=== PATIENT | female | born 1955 | race Caucasian/White ===

== ENCOUNTER 2021-09-30 18:13 | Emergency (ER) | payer MEDICARE, MEDICAID, SELFPAY ==
[2021-09-30 18:18] VITALS: BP 160/112; PULSE 75; RESP 20; TEMP 36.8; O2SAT 99; BMI 29.0
--- NOTE | 2021-09-30 18:38 | ED.GENADULT ---
HPI - General Adult General Chief complaint: Skin/Abscess/Foreign Body Stated complaint: reaction on lips/cold sores Time Seen by Provider: 09/30/21 18:38 Source: patient Mode of arrival: ambulatory Limitations: no limitations History of Present Illness HPI narrative: 65-year-old female with a past medical history of HSV-1, presents to the emergency department with active sores around her lips x 3 days. Patient states that her symptoms are limited to her lips/face only. She denies any sores inside mouth or throat. She denies fever, chills, headache, vision changes, chest pain, SOB, nausea, vomiting, diarrhea, abdominal pain, dysuria, hematuria, or genital sores. Patient states that she used to have a PCP but does not currently have one. Patient states that she used to use cream and oral medications that helped but she has been out of them for a long time. Onset (ago): day(s) Location: face Radiation: non-radiation Severity: mild Severity scale (1-10): 2 Quality: burning Pain Consistency: constant Relieving factors: none Exacerbating factors: none Associated symptoms: denies other symptoms Treatments prior to arrival: none Related Data Previous Rx's Medication Instructions Recorded acyclovir 5 % topical ointment 1 appl topical 6XD 7 days #5 grams 09/30/21 (Zovirax) acyclovir 800 mg tablet 400 mg PO TID 7 days #11 tabs 09/30/21 Allergies Allergy/AdvReac Type Severity Reaction Status Date / Time acetaminophen [From PERCOCET] Allergy Unknown UNKNOWN Unverified 11/05/19 15:58 oxycodone [From PERCOCET] Allergy Unknown UNKNOWN Unverified 11/05/19 15:58 Review of Systems Constitutional: Constitutional: Reports as per HPI, Denies chills, Denies fever(s), Denies headache(s) and Denies malaise Eyes: Eyes: Reports as per HPI and Denies change in vision ENT: Denies headache(s) Cardiovascular: Cardiovascular: Denies chest pain and Denies dyspnea Respiratory: Respiratory: Reports as per HPI and Denies dyspnea Gastrointestinal: Gastrointestinal: Reports as per HPI, Denies abdominal pain, Denies diarrhea, Denies nausea and Denies vomiting Genitourinary: Genitourinary: Reports no additional female genitourinary complaints, Denies hematuria, Denies genital lesions and Denies dysuria Musculoskeletal: Musculoskeletal: Reports no additional musculoskeletal complaints, Denies numbness and Denies tingling Integumentary/Breasts: Skin/Breast: Reports lesions (around the lips) Neurologic: Denies headache(s), Denies numbness and Denies tingling Psychiatric: Psychiatric: Reports no additional psychiatric complaints Endocrine: Endocrine: Reports no additional endocrine complaints Hematologic/Lymphatic: Hematologic/Lymphatic: Reports no additional hematologic/lymphatic complaints Allergic/Immunologic: Allergic/Immunologic: Reports no additional allergic/immunologic complaints [facility] Past Medical History Attestation statement: The following information was validated with the patient. Source: old records reviewed Social History Social History Advance Directives: No Advance Directives Information Provided: No Physical Exam ED Vital Signs: Vital Signs - 24 hr 09/30/21 18:18 Temperature 98.3 F Pulse Rate 75 Respiratory Rate 20 Blood Pressure 160/112 H Pulse Oximetry 99 Oxygen Delivery Method Room Air BMI result Body Mass Index 29.0 Const General: cooperative, no acute distress, alert and awake Nutritional Appearance: well nourished Orientation/consciousness: patient oriented x3 Limitations: no limitations HENMT Other: Multiple herpetic lesions on lips/face, in various stages of healing. No evidence of discharge, fluctuance, streaking, induration, or swelling. Head: Yes atraumatic Ears: hearing grossly normal bilaterally and external ears normal General nose exam: Normal external nose present, no nasal discharge noted and no epistaxis Face and sinus: Yes normal facial exam, No abrasion and No laceration Mouth: Normal oral and palatal mucosa present, oropharynx normal, moist mucous membranes, no drooling and no muffled voice Throat: Yes posterior oropharynx normal and Yes uvula midline Eyes General: appearance normal, both eyes and all related structures Periorbital: periorbital findings normal Eyelids: Yes eyelids normal Conjunctivae: conjunctivae normal Pupils: Equal, round and reactive pupils present EOM: EOMs intact bilaterally Neck Neck: Yes normal visual inspection, Yes full ROM and Yes no lymphadenopathy Chest Chest palpation & inspection: normal inspection of the chest Resp Effort & Inspection: normal respiratory effort and able to speak in complete sentences Auscultation: clear to auscultation bilaterally Cardio Rate: regular rate Rhythm: regular rhythm GI Inspection: Yes normal to inspection Neuro General: patient oriented x3 and moves all extremities Cranial nerves: Yes Equal, round and reactive pupils present Cognition (Neuro): normal cognition Motor exam (neuro): 5/5 motor strength present throughout Sensory Exam: Normal double simultaneous stimulation for sensation Coordination: [id number] test normal Extrem General: Yes normal to inspection, Yes full ROM and Yes capillary refill normal Psych Appearance: grossly normal Mental Status: mental status grossly normal Affect: normal affect Attitude: cooperative Thought process: Normal thought process present Thought content: Normal thought content present Insight: Good insight present (Psych) Medical Decision Making MDM Narrative Medical decision making narrative: Patient is a 65 year old female presenting to the emergency department today with a HSV flare. Patient's physical exam showed multiple herpetic lesions surrounding and on her lips. I explained my physical exam findings to the patient. I answered all questions asked by the patient. I stressed the importance of the patient taking her medication as prescribed. I stressed the importance of the patient following up with her primary care provider. I stressed the importance of the patient returning to the emergency department immediately if her symptoms were to worsen or if she were to develop any dizziness, shortness of breath, difficulty breathing, chest pain, blurry vision, loss of vision, nausea, vomiting, abdominal pain, fever, chills, back pain, or any other complaints. Patient verbalized agreement and understanding with this treatment plan and discharge. Differential Diagnosis Differential Diagnosis: HSV flare Medical Records Medical records reviewed: Yes I reviewed the patient's medical records. Discharge Plan Discharge Clinical Impression: HSV-1 (herpes simplex virus 1) infection Patient Disposition: Home, Self-Care Instructions: Oral Herpes Simplex Virus Infections (ED) Additional Instructions: Follow up with your primary care provider. Return to the emergency department immediately if your symptoms worsen or if you develop any dizziness, shortness of breath, difficulty breathing, chest pain, blurry vision, loss of vision, nausea, vomiting, abdominal pain, fever, chills, back pain, or any other complaints. Prescriptions: New acyclovir [Zovirax] 5 % ointment 1 appl topical 6XD 7 Days Qty: 5 0RF acyclovir 800 mg tablet 400 mg PO TID 7 Days Qty: 11 0RF [place] [facility] (Call to establish and follow up with a primary care provider. If you already have a primary care provider, please follow up with them. ) [facility] [place] [facility] [place] (Call to establish and follow up with a primary care provider. If you already have a primary care provider, please follow up with them. ) [facility] [place] [facility] [place] (Call to establish and follow up with a primary care provider. If you already have a primary care provider, please follow up with them. ) Interventions: ED Discharge Assessment Last Done: 09/30/21 19:18 Discharge Date/Time: 09/30/21 19:18 Print Language: Salvadorean
== END 2021-09-30 19:18 | disposition home or self-care (01) ==
PROVIDERS: Emergency Provider Emergency Medicine Emergency Medical Services
DX: B00.1 Herpesviral vesicular dermatitis (principal)
CPT/HCPCS: 99282; 99283

== ENCOUNTER 2024-11-23 12:29 | Inpatient (IN) | payer MEDICARE, MEDICAID, SELFPAY ==
[2024-11-23] VITALS (7 sets, daily range): BP systolic 84–133; BP diastolic 52–86; PULSE 82–119; RESP 14–20; TEMP 36.4–37.1; O2SAT 94–98; BMI 25.8
--- NOTE | ~2024-11-23 | FL_ITS ---
EXAMINATION: FL SMALL BOWEL SERIES CLINICAL INFORMATION: ffup for partial small bowel osbtruction COMPARISON: Previous CT from yesterday TECHNIQUE: Following a mobile game engineer image of the abdomen, contrast was administered through a nasogastric tube, and interval abdominal radiographs were performed to assess for contrast progression through the small bowel. Following contrast transit through the small bowel and into the colon, the patient was placed on the fluoroscopy table, and multiple spot images were obtained. FINDINGS: Machinery Cleaner image of the abdomen demonstrates nasogastric tube coiled in the proximal stomach. There are dilated loops of small bowel. Small bowel appears less dilated than on yesterday's CT scan. There is normal transit time of contrast material through the small bowel, with contrast present in the colon by 25 minutes. Small bowel loops are of normal caliber throughout the abdomen and pelvis. The jejunal and ileal fold patterns are normal, without evidence of abnormal thickening. No fixed regions of luminal narrowing are seen to suggest stricturing. The terminal ileum demonstrates a normal appearance. There is passage of oral contrast through the colon into the rectum. FLUOROSCOPY TIME: 4 seconds DOSE AREA PRODUCT: 386 uGy-m2 (microgray-meter squared) FL/FL small bowel follow through IMPRESSION: Normal small bowel series. No evidence of obstruction. Electronically signed by: Ryanne Luu MD 11/24/2024 01:59 PM EDT
--- NOTE | ~2024-11-23 | XR_ITS ---
CLINICAL HISTORY: ng tube placement 1 view chest x-ray Comparison: None provided Findings: No consolidation or effusion. Normal size heart. No acute fracture. Well-positioned NG tube. IMPRESSION: Well-positioned NG tube. This document has been electronically signed by: Doroteo Terrazas MD on 11/24/2024 05:07:17
--- NOTE | ~2024-11-23 | CT_ITS ---
EXAMINATION: CT ANGIOGRAM chest, ABDOMEN AND PELVIS CLINICAL INFORMATION: Chest and abdominal pain. Rule out dissection. COMPARISON: None available. TECHNIQUE: Multiple axial images were obtained through the abdomen and pelvis following the administration of 80 mL of Omnipaque 350 intravenous contrast. Images were reviewed on a dedicated 3-D workstation. This CT examination was performed using dose optimization techniques as appropriate, variously including the following: *Automated exposure control *Adjustment of mA and/or kV according to patient size (this includes techniques or standardized protocols for targeted exams where dose is matched to indication/reason for exam; i.e. extremities or head) *Use of iterative reconstruction technique Patient dose 5 9 6 mg/cm FINDINGS: Vascular: The thoracic aorta is normal in caliber. No aneurysm or dissection. Great vessel origins are patent. Normal caliber pulmonary arteries. No pulmonary embolism seen. Normal caliber abdominal aorta. No aneurysm or dissection. Normal caliber common, internal and external iliac and common femoral arteries. Normal caliber femoral bifurcations. Common origin of the celiac axis and SMA. Patent BARBARA. Normal caliber bilateral renal arteries. Nonvascular: CHEST: The lungs are clear. Normal heart size. No pericardial effusion. No coronary artery calcification. There may be a small esophageal hernia. Normal-appearing thyroid gland. No enlarged lymph nodes. Abdomen and pelvis: Normal liver. Absent gallbladder. Intra and extrahepatic biliary duct dilatation. Common bile duct measures 1.5 cm and is dilated down to the head of the pancreas. No stone appreciated by CT. Normal pancreas. Normal spleen. Normal adrenal glands. 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 Otherwise normal kidneys. Dilated fluid-filled stomach and small bowel. Distal small bowel does not appear dilated with transition zone in the right lower quadrant suggestive of distal small bowel obstruction for example coronal image 48 and axial image 114 series 5. Diverticulosis of the colon. No evidence of diverticulitis. Normal-appearing appendix. Normal-appearing bladder, uterus and adnexa. No ascites or free air. Small mesenteric lymph nodes. No enlarged lymph nodes. Degenerative changes of the spine. L1 vertebral body hemangioma. CT/CT angio abdomen pelvis IMPRESSION: No evidence of dissection. Dilated fluid-filled small bowel suggestive of distal small bowel obstruction with caliber change in the right lower quadrant. Diverticulosis of the colon. No evidence of diverticulitis. Dilated intra and extrahepatic bile ducts, common bile duct measuring up to 1.5 cm. This may be normal postcholecystectomy. Correlate with liver function tests. This could be better evaluated with MRCP if clinically warranted. Fleischner guidelines were followed. Electronically signed by: Ryanne Luu MD 11/23/2024 03:01 PM EDT RP
--- NOTE | ~2024-11-23 | CT_ITS ---
EXAMINATION: CT ANGIOGRAM CHEST See report for combined CTA of the chest abdomen and pelvis. Electronically signed by: Ryanne Luu MD 11/23/2024 03:02 PM EDT
--- NOTE | ~2024-11-23 | XR_ITS ---
EXAMINATION: XR CHEST CLINICAL INFORMATION: free air evaluation COMPARISON: None available. TECHNIQUE: Frontal view of the chest was obtained. FINDINGS: The cardiac, hilar, and mediastinal contours are normal. The lungs are clear bilaterally. No pneumothorax or effusion. No focal osseous or soft tissue abnormality. There is no evidence of free intraperitoneal air. Degenerative changes in the bilateral shoulder joints and throughout the spine. XR/XR chest 1V IMPRESSION: No active pulmonary disease. No evidence of free intraperitoneal air. Electronically signed by: Pool Lindsey MD 11/23/2024 01:39 PM EDT RP
--- NOTE | 2024-11-23 13:04 | ECG_ITS ---
Test Reason : abd pain Blood Pressure : */* mmHG Vent. Rate : 105 BPM Atrial Rate : 105 BPM P-R Int : 164 ms QRS Dur : 66 ms QT Int : 344 ms P-R-T Axes : 58 -38 66 degrees QTcB Int : 454 ms Sinus tachycardia Possible Left atrial enlargement Left axis deviation Abnormal ECG When compared with ECG of 09-May-2016 16:14, Questionable change in QRS duration Referred By: John Rubin Electronically Signed By: KARSON CLARK MD
[2024-11-23] MEDS: Lactated Ringers 1,000 ML 999 ML IV ×2 (13:25→13:41)
[2024-11-23 13:28] LABS: MANUAL DIFF FLAG NO
[2024-11-23 13:32] LABS: Hematocrit 46.8 % (37.0-47.0); Hemoglobin 16.1 g/dl (12.0-16.0); Imm Gran Abs Auto 0.05 X10*3/uL (0.00-0.03); Imm Gran Pct Auto 0.4 % (0.0-0.4); Lymphocytes Absolute Auto 2.6 X10*3/uL (1.2-4.9); Mean Corpuscular HGB Conc 34.4 g/dl (31.0-35.0); Mean Corpuscular Hemoglobin 27.9 pg (27.0-33.0); Mean Corpuscular Volume 81.1 fL (80.0-98.0); NRBC Abs Auto 0.000 X10*3/uL (0.0-0.012); NRBC Pct Auto 0.0 /100WBC (0.0-0.2); Platelet Count 456 X10*3/uL (160-400); Red Blood Count 5.77 X10*6/uL (4.20-5.50); White Blood Count 11.9 X10*3/uL (4.8-10.8)
--- NOTE | 2024-11-23 13:32 | ED.GENADULT ---
[facility] - General Adult General Chief complaint: Abdominal Pain Stated complaint: stomach pain, bloating for 3 days Time Seen by Provider: 11/23/24 13:16 Source: patient Mode of arrival: ambulatory Limitations: no limitations History of Present Illness ED Provider: Dr. Pham [facility] narrative: 69-year-old female presented hospital today for evaluation of left upper quadrant pain. Patient appears to be in acute Distress. Patient's is actively vomiting. Appears to be bile. Patient is not to be hypotensive and tachycardic in triage brought back to room immediately. Patient stated that this pain started all of a sudden in the left upper quadrant. She has very nauseous. Last bowel movement was earlier yesterday. Related Data Previous Rx's ?Medication ?Instructions ?Recorded acyclovir 5 % topical ointment 1 appl topical 6XD 7 days #5 grams 09/30/21 (Zovirax) acyclovir 800 mg tablet 400 mg (1/2 x 800 mg) PO TID 7 09/30/21 days #11 tabs Allergies Allergy/AdvReac Type Severity Reaction Status Date / Time acetaminophen (From PERCOCET) Allergy Unknown UNKNOWN Verified 11/23/24 12:56 oxycodone (From PERCOCET) Allergy Unknown UNKNOWN Verified 11/23/24 12:56 Review of Systems Review of Systems: Pertinent review of systems as mentioned in [facility]. All other system otherwise negative. [facility] Past Medical History [facility] Narrative: Medical history as mentioned in [facility] Social History Social History Advance Directives: No Advance Directives Information Provided: Yes Physical Exam ED Exam Exam: General: Appears to be in acute distress appears to be in pain actively vomiting Head: Normacephalic, atraumatic ENT: oral mucosa moist, neck supple, no tracheal deviation Cardiovascular: Tachycardic rate, regular rhythm, no murmurs, rubbing, gallops Respiratory: CTAB, no wheeze, rales, rhonchi Gastrointestinal: Soft, left upper quadrant tenderness on palpation Extremities: No limb pain or swelling, no calf tenderness Neurological: Awake and alert, no facial droop noted Skin: Warm and dry Psychiatric: Appropriate mood and thoughts Vital Signs: Vital Signs - 24 hr 11/23/24 12:54 11/23/24 13:30 11/23/24 14:30 Temperature 97.6 F Pulse Rate 119 H 98 Respiratory Rate 20 16 Blood Pressure 84/52 L 104/86 133/85 Pulse Oximetry 94 98 Oxygen Delivery Method Room Air 11/23/24 16:00 Temperature Pulse Rate 91 Respiratory Rate 16 Blood Pressure 117/75 Pulse Oximetry 98 Oxygen Delivery Method Room Air BMI result Body Mass Index 25.8 Medications Administered Discontinued Medications Generic Name Dose Route Start Last Admin Trade Name Freq PRN Reason Stop Dose Admin Famotidine 20 mg 11/23/24 13:23 11/23/24 13:30 Famotidine/Pf 20 Mg/2 Ml Vial IVPUSH 11/23/24 13:24 20 mg ONCE ONE Administration Fentanyl 100 mcg 11/23/24 13:20 11/23/24 13:25 Fentanyl Citrate/Pf 100 Mcg/2 Ml Vial IVPUSH 11/23/24 13:21 100 mcg ONCE ONE Administration Protocol Hydromorphone HCl 0.5 mg 11/23/24 13:30 11/23/24 13:34 Hydromorphone Hcl 0.5 Mg/0.5 Ml Syringe IVPUSH 11/23/24 13:31 0.5 mg ONCE ONE Administration Protocol Hydromorphone HCl 0.5 mg 11/23/24 15:44 11/23/24 15:56 Hydromorphone Hcl 0.5 Mg/0.5 Ml Syringe IM 11/23/24 15:45 0.5 mg ONCE ONE Administration Protocol Lactated Ringer's 1,000 mls @ 999 mls/hr 11/23/24 13:30 11/23/24 14:43 Lr IV 11/23/24 14:30 Infused .Q1H1M LUIS Infusion Lactated Ringer's 1,000 mls @ 999 mls/hr 11/23/24 13:45 11/23/24 15:44 Lr IV 11/23/24 14:45 Infused .Q1H1M LUIS Infusion Iohexol 100 ml 11/23/24 14:22 11/23/24 14:23 Iohexol 350 Mg/Ml 100 Ml Infus..Btl IV 11/23/24 14:23 80 ml ONCE ONE Administration Ondansetron HCl 4 mg 11/23/24 13:20 11/23/24 13:25 Ondansetron Hcl 4 Mg/2 Ml Vial IVPUSH 11/23/24 13:21 4 mg ONCE ONE Administration Ondansetron HCl 4 mg 11/23/24 13:30 11/23/24 13:34 Ondansetron Hcl 4 Mg/2 Ml Vial IVPUSH 11/23/24 13:31 4 mg ONCE ONE Administration Promethazine HCl 12.5 mg 11/23/24 15:44 11/23/24 15:56 Promethazine Hcl 25 Mg/Ml Vial IM 11/23/24 15:45 12.5 mg ONCE ONE Administration Medical Decision Making Medical Decision Making [facility] Narrative: 69-year-old female presented hospital today for acute left upper quadrant pain. Patient does appear to be actively vomiting bilious emesis. Appears to be in acute pain. Patient is noted to be hypotensive 89/52 tachycardic in the 118. We will plan to give patient a dose of 100 mcg of IV fentanyl, IV Zofran be given to the patient as well as start patient on LR. Patient likely is hypovolemic from vomiting. She does have tenderness in the left upper quadrant. We will obtain a stat chest x-ray to evaluate for any signs of free air underneath the diaphragm. Abdominal lab work will be sent off for the patient at this time. Patient is still complaining of pain. Additional IV Dilaudid was given for pain control. Additional dose of IV Zofran given to the patient. We will plan to start patient on a L of IV fluid. CTA of the chest abdomen and pelvis will be obtained to rule out dissection. On reassessment patient appears to be better. No longer actively vomiting. Pain is controlled. Pending CTA of the chest abdomen and pelvis at this time. CTA of the chest abdomen pelvis negative for dissection. Patient does appear to be improved after medication. Patient does have finding of small bowel obstruction on CT imaging. Surgery was consulted recommend admission at this time. NG tube will be placed. Additional Compazine and IV Dilaudid given for pain and symptom control. Patient is agreement with this plan all questions were addressed. Differential Diagnosis Differential Diagnoses: The differential diagnosis associated with the presentation includes Aortic dissection, gastric perforation, gastritis, AAA, GERD Consult Healthcare Provider Management of the patient was discussed with: Head Of Housekeeping (Dr. Friedman (General surgery)) Lab Data [facility] Lab Attestation statement: I reviewed the patient's lab results. 11/23/24 13:23 11/23/24 13:23 Labs: Lab Results 10/06/25 Range/Units 13:23 WBC 11.9 H (4.8-10.8) X10*3/uL RBC 5.77 H (4.20-5.50) X10*6/uL Hgb 16.1 H (12.0-16.0) g/dl Hct 46.8 (37.0-47.0) % MCV 81.1 (80.0-98.0) fL MCH 27.9 (27.0-33.0) pg MCHC 34.4 (31.0-35.0) g/dl RDW 14.1 (11.0-16.0) % Plt Count 456 H (160-400) X10*3/uL MPV 10.2 (9.4-12.3) fL Immature Gran % (Auto) 0.4 (0.0-0.4) % Neut % (Auto) 68.2 (45-73) % Lymph % (Auto) 21.7 (20-40) % [place] % (Auto) 8.5 (2-11) % Eos % (Auto) 0.6 (0-4) % Baso % (Auto) 0.6 (0-2) % Lymph # (Auto) 2.6 (1.2-4.9) X10*3/uL [place] # (Auto) 1.0 (0.1-1.2) X10*3/uL Eos # (Auto) 0.1 (0.0-0.4) X10*3/uL Baso # (Auto) 0.1 (0.0-0.2) X10*3/uL Abs Immat Gran (auto) 0.05 H (0.00-0.03) X10*3/uL Absolute Neuts (auto) 8.1 (2.0-8.3) x10*3/uL Absolute Nucleated RBC 0.000 (0.0-0.012) X10*3/uL Nucleated RBC % (auto) 0.0 (0.0-0.2) /100WBC Sodium 137 (135-145) mmol/L Potassium 3.8 (3.3-5.1) mmol/L Chloride 101 (96-108) mmol/L Carbon Dioxide 21 L (22-29) mmol/L Anion Gap 19 (12-20) BUN 48 H (9-16) mg/dL Creatinine 1.33 (0.5-1.4) mg/dL Estim Creat Clear Calc 40.7 Estimated GFR 40 Random Glucose 119 H (60-115) mg/dL Calcium 10.0 (8.4-10.2) mg/dL Magnesium 1.9 (1.6-2.6) mg/dL Total Bilirubin 0.6 (0.0-1.0) mg/dL AST 39 H (5-31) U/L ALT 51 H (0-31) U/L Alkaline Phosphatase 98 (39-117) U/L Troponin I High Sens 2.9 (<3.5-17.0) ng/L Total Protein 8.4 H (6.5-8.0) g/dL Albumin 4.8 (3.5-5.0) g/dL Lipase 37 (8-78) U/L Independent Interpretation I performed an independent interpretation of an: CT Scan Radiology Impression Discussion of test interpretation with radiology: I have reviewed the radiologist's reading. Critical Care Time Critical Care Time Critical Care Time: Yes Total Critical Care Time: 48 Attestation: Time is exclusive of separately billable procedures. Time includes: direct patient care, patient reassessment, coordination of patient care, interpretation of data (laboratory data, pulse oximetry, arterial blood gases and chest xrays), review of patient's medical records, medical consultation and documentation of patient care. Procedures excluded from critical care time: central intravenous line placement and electrocardiography. Discharge Plan Discharge Clinical Impression: Small bowel obstruction, Dehydration, severe Patient Disposition: Admitted As Inpatient Print Language: Urdu
[2024-11-23 13:50] LABS: Troponin-I High Sensitivity 2.9 ng/L (<3.5-17.0)
--- NOTE | 2024-11-23 13:55 | PC.NURSE ---
On arrival pt actively vomiting and moaning. Pt endorses LUQ stabbing pain. States abdomen feels liek it is going to explode . Tearful
[2024-11-23 13:57] LABS: Alanine Aminotransferase 51 U/L (0-31); Albumin Level 4.8 g/dL (3.5-5.0); Alkaline Phosphatase 98 U/L (39-117); Anion Gap 19 (12-20); Aspartate Amino Transferase 39 U/L (5-31); Blood Urea Nitrogen 48 mg/dL (9-16); Calcium 10.0 mg/dL (8.4-10.2); Carbon Dioxide 21 mmol/L (22-29); Chloride 101 mmol/L (96-108); Creatinine Clr Calc Pharmacy 40.7; Estimated Glomerular Filt Rate 40; Lipase 37 U/L (8-78); Magnesium 1.9 mg/dL (1.6-2.6); Potassium 3.8 mmol/L (3.3-5.1); Sodium 137 mmol/L (135-145); Total Protein 8.4 g/dL (6.5-8.0)
[2024-11-23] MEDS: iohexoL 350 MG/ML 100 ML INFUS..BTL IV (14:23)
--- NOTE | 2024-11-23 14:44 | PC.NURSE ---
Pt with significant improvement after dilaudid and zofran. VS improved with IVF. Results pending.
--- OUTSIDE RECORDS SUMMARY | 2024-11-23 16:22 | XMS_ITS | Clinical Summary ---
Author Organization [facility] ity Address [address] [place] [address] Care Team Providers Care Hygiene Coordinator Name Role Phone Unavailable Primary Care Provider Unavailabl e Social History Tobacco Use Types Packs/Day Years Used Date Smoking Tobacco: Never Assessed Comments Unknown Sex and Gender Information Value Date Recorded Sex Assigned at Not on file Legal Sex Female 9:06 AM EST Gender Identity Not on file Sexual Orientation Not on file Plan of Treatment Health Maintenance Due Date Last Done Comments Breast Cancer Screening 1955 DTaP,Tdap,and Td Vaccines (1 - Tdap) 10/15/1974 Pneumococcal Vaccine: 50+ Ye ars (1 of 1 - PCV) 10/15/2005 Zoster Vaccines (1 of 2) 10/15/2005 Depression Screening 02/19/2024 COVID-19 Vaccine (1 - 2023-2 5 season) 2024 Influenza Vaccine (#1) 2024 RSV Immunization Adult Patie nts (1 - 1-dose 75+ series) 10/15/2030 HIB Vaccines Aged Out No longer eligi ble based on patient's age to complete this topic HPV Vaccines Aged Out No longer eligi ble based on patient's age to complete this topic Hepatitis A Vaccines Aged Out No long er eligible based on patient's age to complete this topic Hepatitis B Vaccines Aged Out No long er eligible based on patient's age to complete this topic IPV Vaccines Aged Out No longer eligi ble based on patient's age to complete this topic MMR Vaccines Aged Out No longer eligi ble based on patient's age to complete this topic Meningococcal ACWY Vaccine Aged Out N o longer eligible based on patient's age to complete this topic Meningococcal B Vaccine Aged Out No l onger eligible based on patient's age to complete this topic RSV Immunization Patients Un olamide 20 months Aged Out No longer eligible b ased on patient's age to complete this topic Varicella Vaccines Aged Out No longer eligible based on patient's age to complete this topic
--- NOTE | 2024-11-23 16:56 | P.HPGS_ITS ---
History of Present Illness History of Present Illness Date of Service: 11/25/24 Chief complaint: Partial small bowel obstruction Narrative: Yadira Ulloa is a 69 year old female with a history of appendectomy, laparoscopic cholecystectomy as well as a Darnell fundoplication, here because of vomiting and abdominal pain. She says that she has been having this for several days now. She says that she had been throwing up at home for many days and has a poor oral intake. She describes having severe abdominal pain mostly in the upper abdomen today so she came to the ER Currently she says her symptoms have improved. She says she last vomited around 3 hours ago She says she has passed a little bit of flatus and BMs this morning. She says she says she no longer sees a primary care physician as she is in the process of switching. She denies diabetes, coronary artery disease, smoking history or alcohol abuse. Review of Systems Constitutional: Constitutional: Denies chills and Denies fever(s) Cardiovascular: Cardiovascular: Denies chest pain, Denies dyspnea and Denies dyspnea on exertion Respiratory: Respiratory: Denies cough, Denies dyspnea and Denies dyspnea on exertion Gastrointestinal: Gastrointestinal: Denies hematochezia and Denies change in bowel habits Genitourinary: Genitourinary: Denies hematuria Musculoskeletal: Musculoskeletal: Denies back pain and Denies limited range of motion Neurologic: Denies focal weakness and Denies convulsions Psychiatric: Psychiatric: Denies depression and Denies mood swings PMFSH Past Medical History Medical History Partial small bowel obstruction Social History Social History Household Members: Friend(s) Housing: Apartment Do you presently have visiting nurse or other home services: No Patient Tobacco Use Status: Never used Tobacco service: No Meds Allergies Allergy/AdvReac Type Severity Reaction Status Date / Time acetaminophen (From PERCOCET) Allergy Unknown UNKNOWN Verified 11/23/24 12:56 oxycodone (From PERCOCET) Allergy Unknown UNKNOWN Verified 11/23/24 12:56 Home Medications ?Medication ?Instructions ?Recorded ?Confirmed ?Last Taken ?Type omeprazole 20 mg capsule,delayed 20 mg PO BID@0630,163 0 11/23/24 11/23/24 11/22/24 History release Physical Exam 2 Vital Signs: Vital Signs: Last Vital Signs Temp 97.6 F 11/23/24 12:54 Pulse 91 11/23/24 16:00 Resp 16 11/23/24 16:00 BP 117/75 11/23/24 16:00 Pulse Ox 98 11/23/24 16:00 O2 Del Method Room Air 11/23/24 16:00 BMI result Body Mass Index 25.8 Const: General: comfortable and no acute distress Orientation/consciousness: patient oriented x3 Neck: Neck: Yes no lymphadenopathy Resp: Auscultation: clear to auscultation bilaterally Cardio: Rhythm: regular rhythm GI: Palpation (GI): Soft to palpation, Tenderness to palpation present (GI) (Some mild diffuse tenderness mostly in the upper abdomen) and no guarding Neuro: General: patient oriented x3 Results Results Labs: Short CBC 11/23/24 Range/Units 13:23 WBC 11.9 H (4.8-10.8) X10*3/uL Hgb 16.1 H (12.0-16.0) g/dl Hct 46.8 (37.0-47.0) % Plt Count 456 H (160-400) X10*3/uL BMP 11/23/24 13:23 Sodium 137 Potassium 3.8 Chloride 101 Carbon Dioxide 21 L BUN 48 H Creatinine 1.33 Calcium 10.0 Liver Function 11/23/24 Range/Units 13:23 Total Bilirubin 0.6 (0.0-1.0) mg/dL AST 39 H (5-31) U/L ALT 51 H (0-31) U/L Alkaline Phosphatase 98 (39-117) U/L Albumin 4.8 (3.5-5.0) g/dL Abdomen CT scan report/results: report reviewed and image reviewed CT scan - chest: report reviewed and image reviewed CT scan - pelvis: report reviewed and image reviewed Additional studies: CT/CT angio abdomen pelvis IMPRESSION: No evidence of dissection. Dilated fluid-filled small bowel suggestive of distal small bowel obstruction with caliber change in the right lower quadrant. Diverticulosis of the colon. No evidence of diverticulitis. Dilated intra and extrahepatic bile ducts, common bile duct measuring up to 1.5 cm. This may be normal postcholecystectomy. Correlate with liver function tests. This could be better evaluated with MRCP if clinically warranted. Fleischner guidelines were followed. Electronically signed by: Ryanne Luu MD 11/23/2024 03:01 PM EDT RP Assessment and Plan (1) Partial small bowel obstruction: Status: Acute 69 year female with the abdominal pain and vomiting. I have reviewed her CAT scan he is note of dilated small bowel loops with what appears to be tapering and collapse distally in the pelvis. This is consistent with partial small- bowel obstruction likely from adhesions. She has had gallbladder surgery, fundoplication as well as appendectomy in the past. She does have good amounts of air in the colon Her abdomen is soft and benign. I explained to her that we will need to put an NG-tube in and she will be on IV fluids I may order for a small bowel series with Gastrografin tomorrow. She understands the plan well. We will repeat her labs in the morning as well. Quality Stroke Does the patient have a stroke diagnosis?: No VTE Prior VTE?: No VTE Risk Level:: Medical - moderate - high VTE Device Contraindication: N/A - Device Ordered VTE Drug Contraindication: N/A - Med Ordered Procedures Date of Service Date of Service: 11/25/24
--- NOTE | 2024-11-23 16:59 | PC.NURSE ---
14 Maced[place] Mccone NG tube inserted via left nostril. Placement verified.. Tube attached to low intermittent suction (LIS) as ordered. Tube secured to nose with exit point at 54 cm. Tolerated procedure without complication, states decreased pressure/pain- thick yellow brown drainage noted. plan for admission for SBO.
[2024-11-23] MEDS: Lactated Ringers 1,000 ML 100 ML IVCONT (17:36)
--- NOTE | 2024-11-23 18:25 | HO.NURTONUR ---
Pt came to ED for 3 days of n/v and LUQ abd pain. Hx of appendectomy, lap primitivo, antonia fundoplication. CT showed partial SBO likely from adhesions from previous abd surgeries. NGT placed to LIS. Approx 200 yellow/bile output. Pain and nausea decreased s/p NGT placement and dilaudid. Pt has 20g LFA, 20g RAC. Initally tachycardic and hypotensive. Improved with IVFs. Plan for rescan tomorrow.
--- NOTE | 2024-11-23 18:58 | PHA.MEDREC ---
Addendum entered by Fredrick Young, PharmBreann 11/23/24 21:35: MED REC CHECKED BY [facility] Original Note: Pharmacy Consult ? Medication Reconciliation Pharmacy has completed the medication reconciliation. Patient states she is only taking Omeprazole 20 mg.
[2024-11-24] VITALS (8 sets, daily range): BP systolic 92–121; BP diastolic 58–75; PULSE 71–88; RESP 13–20; TEMP 36.6–36.8; O2SAT 94–97; BMI 27.4
[2024-11-24] MEDS: 0.9 % Sodium Chloride Flush 3 ML SYRINGE IVFLUSH (00:17)
[2024-11-24] MEDS: Lactated Ringers 1,000 ML 100 ML IVCONT ×3 (03:46→23:36)
[2024-11-24 04:46] LABS: MANUAL DIFF FLAG NO
[2024-11-24 04:49] LABS: Hematocrit 40.1 % (37.0-47.0); Hemoglobin 13.1 g/dl (12.0-16.0); Imm Gran Abs Auto 0.03 X10*3/uL (0.00-0.03); Imm Gran Pct Auto 0.3 % (0.0-0.4); Lymphocytes Absolute Auto 2.0 X10*3/uL (1.2-4.9); Mean Corpuscular HGB Conc 32.7 g/dl (31.0-35.0); Mean Corpuscular Hemoglobin 27.6 pg (27.0-33.0); Mean Corpuscular Volume 84.4 fL (80.0-98.0); NRBC Abs Auto 0.000 X10*3/uL (0.0-0.012); NRBC Pct Auto 0.0 /100WBC (0.0-0.2); Platelet Count 331 X10*3/uL (160-400); Red Blood Count 4.75 X10*6/uL (4.20-5.50); White Blood Count 9.6 X10*3/uL (4.8-10.8)
[2024-11-24 05:07] LABS: Appearance Urine Clear; Glucose Urine UA Negative (Negative); PH 6.0 (5.0-9.0); Specific Gravity - Urine >= 1.030 (1.005-1.025); UMIC TRIGGER UA YES
[2024-11-24 05:11] LABS: Anion Gap 12 (12-20); Blood Urea Nitrogen 32 mg/dL (9-16); Calcium 8.7 mg/dL (8.4-10.2); Carbon Dioxide 28 mmol/L (22-29); Chloride 104 mmol/L (96-108); Creatinine Clr Calc Pharmacy 63.7; Estimated Glomerular Filt Rate > 60; Potassium 4.0 mmol/L (3.3-5.1); Sodium 140 mmol/L (135-145)
--- NOTE | 2024-11-24 07:41 | PM.PNGS ---
Subjective Subjective Date of Service: 11/24/24 <Lana Krishnan PA-C - Last Filed: 11/24/24 08:31> 11/24/24 <Riki Friedman MD - Last Filed: 11/24/24 09:59> Interval history: Initially felt better after NGT inserted, pain returned this morning but overall less severe. Some nausea but no further vomiting. She is passing a small amount of flatus. <Lana Krishnan PA-C - Last Filed: 11/24/24 08:31> Physical Exam Vital Signs: Vital Signs: Last Vital Signs Temp 98.8 F 11/23/24 23:43 Pulse 75 11/24/24 04:49 Resp 19 11/24/24 04:49 BP 121/75 11/24/24 04:49 Pulse Ox 97 11/24/24 04:49 O2 Del Method Nasal Cannula 11/24/24 04:49 O2 Flow Rate 2 11/24/24 02:17 BMI result Body Mass Index 25.8 <Lana Krishnan PA-C - Last Filed: 11/24/24 08:31> Const: General: comfortable and no acute distress <Lana Krishnan PA-C - Last Filed: 11/24/24 08:31> Resp: Effort & Inspection: normal respiratory effort <OSMAR Albarran Last Filed: 11/24/24 08:31> GI: Inspection: Yes distended (mild ) <Lana Krishnan PA-C - Last Filed: 11/24/24 08:31> Palpation (GI): Soft to palpation, Tenderness to palpation present (GI) (mild LUQ and LLQ) and no guarding <Lana Krishnan PA-C - Last Filed: 11/24/24 08:31> Skin: General skin exam: no rashes or lesions noted <OSMAR Albarran Last Filed: 11/24/24 08:31> Objective Data Active Medications Acetaminophen (Acetaminophen 325 Mg Tablet) 650 mg PO Q6H PRN PRN Reason: Pain, Mild 1-3,fever,headache Heparin Sodium (Porcine) (Heparin Sodium,Porcine 5,000 Unit/Ml Vial) 5,000 unit SUBCUT Q12H LUIS Lactated Ringer's (Lr) 1,000 mls @ 100 mls/hr IVCONT .[facility]H [facility] Last Admin: 11/24/24 03:46 Dose: 100 mls/hr Documented By: CHANCE Morphine Sulfate (Morphine Sulfate 4 Mg/Ml Cartridge) 3 mg IVPUSH Q3H PRN; Protocol PRN Reason: Pain, Severe (Pain Scale 7-10) Last Admin: 11/24/24 00:17 Dose: 3 mg Documented By: CHANCE Ondansetron HCl (Ondansetron Hcl 4 Mg/2 Ml Vial) 4 mg IVPUSH Q6H PRN PRN Reason: nausea Last Admin: 11/23/24 19:27 Dose: 4 mg Documented By: CHANCE Sodium Chloride (0.9 % Sodium Chloride Flush 3 Ml Syringe) 3 ml IVFLUSH QSHIFT [facility] Last Admin: 11/24/24 00:17 Dose: 3 ml Documented By: CHANCE <Lana Krishnan PA-C - Last Filed: 11/24/24 08:31> Labs CBC & Chem 7: 11/24/24 04:09 11/24/24 04:09 <Lana Krishnan PA-C - Last Filed: 11/24/24 08:31> Labs: Laboratory Results - last 24 hr 11/23/24 11/24/24 11/24/24 13:23 04:09 05:00 MCV 81.1 84.4 MCH 27.9 27.6 MCHC 34.4 32.7 RDW 14.1 14.4 Plt Count 456 H 331 D MPV 10.2 10.2 Immature Gran % (Auto) 0.4 0.3 Neut % (Auto) 68.2 64.8 Lymph % (Auto) 21.7 20.4 [place] % (Auto) 8.5 11.0 Eos % (Auto) 0.6 2.6 Baso % (Auto) 0.6 0.9 Lymph # (Auto) 2.6 2.0 [place] # (Auto) 1.0 1.1 Eos # (Auto) 0.1 0.3 Baso # (Auto) 0.1 0.1 Abs Immat Gran (auto) 0.05 H 0.03 Absolute Neuts (auto) 8.1 6.2 Absolute Nucleated RBC 0.000 0.000 Nucleated RBC % (auto) 0.0 0.0 Anion Gap 19 12 Estim Creat Clear Calc 40.7 63.7 Estimated GFR 40 > 60 Random Glucose 119 H 95 Calcium 10.0 8.7 D Magnesium 1.9 Total Bilirubin 0.6 AST 39 H ALT 51 H Alkaline Phosphatase 98 Troponin I High Sens 2.9 Total Protein 8.4 H Albumin 4.8 Lipase 37 Urine Color Yellow Urine Appearance Clear Urine pH 6.0 Ur Specific [place] >= 1.030 H Urine Protein 30 (1+) H Urine Glucose (UA) Negative Urine Ketones 15 Urine Blood Negative Urine Nitrite Negative Ur Leukocyte Esterase Negative Urine RBC 0-2 Urine WBC 0-5 Ur Squamous Epith Cells 3-5 Urine Bacteria Trace Hyaline Casts 3-5 <Lana Krishnan PA-C - Last Filed: 11/24/24 08:31> Procedures Date of Service Date of Service: 11/24/24 <Lana Krishnan PA-C - Last Filed: 11/24/24 08:31> 11/24/24 <Riki Friedman MD - Last Filed: 11/24/24 09:59> Progress Note: A&P Assessment and plan (1) Small bowel obstruction: Status: Acute <Lana Krishnan PA-C - Last Filed: 11/24/24 08:31> Assessment and Plan: Some abdominal pain although better Little bit of nausea but no vomiting NG-tube in place Abdomen is soft and benign Looks well overall For small bowel follow-through with Gastrografin She is passing flatus Seen and examined independently <Riki Friedman MD - Last Filed: 11/24/24 09:59> Assessment and Plan: She does have some evidence of GI function but continued pain and nausea. Will therefore obtain SBFT today to hopefully open her up further. Cont NGT decompression, IVF, pain control and antiemetics as needed. Patient comfortable with plan. Encouraged OOB/ambulation to promote GI function. <Lana Krishnan PA-C - Last Filed: 11/24/24 08:31> Time Spent With Patient Time: Total time managing care of this patient today ____ minutes. <Lana Krishnan PA-C - Last Filed: 11/24/24 08:31> Quality Stroke Does the patient have a stroke diagnosis?: No <Lana Krishnan PA-C - Last Filed: 11/24/24 08:31> VTE Prior VTE?: No <Lana Krishnan PA-C - Last Filed: 11/24/24 08:31> VTE Risk Level:: Medical - moderate - high <Lana Krishnan PA-C - Last Filed: 11/24/24 08:31> VTE Device Contraindication: N/A - Device Ordered <Lana Krishnan PA-C - Last Filed: 11/24/24 08:31> VTE Drug Contraindication: N/A - Med Ordered <Lana Krishnan PA-C - Last Filed: 11/24/24 08:31>
--- NOTE | 2024-11-24 07:58 | PC.NURSE ---
Pt A&O X4 VSS NGT to LWS draining light brown-clr drainage. Pt c/o abd pain- med with Morphine just now. NAD otherwise.
--- NOTE | 2024-11-24 10:08 | PM.EVENT ---
Event Note Date of Service: 11/24/24 Event Note: SBFT ordered. 240cc gastrograffin injected at 10:00. Patient tolerated well. Radiology at bedside. Time Spent With Patient Time: Total time managing care of this patient today ____ minutes.
--- NOTE | 2024-11-24 12:28 | MHC.CM.PN ---
IMM delivered. Patient lives at home w/ roommate. Functionally independent. Denies use of DME or services. No PCP. Discussed the importance of establishing care and provided brochure. Patient will call to schedule appt. No HCP. CM provided education and offered assistance. DP: Goal is home self care. Roommate to transport. CM will continue to follow.
--- NOTE | 2024-11-24 13:04 | PM.EVENT ---
Event Note Date of Service: 11/24/24 Event Note: SBFT shows contrast in the colon at 75 minutes. She has also had multiple bowel movements. Upon reassessment she reports little to no abdominal pain, nausea, vomiting. Residual was checked on her NGT which was scant and it was therefore removed uneventfully. Ok to have clear liquids. Encouraged OOB/ambulation. Time Spent With Patient Time: Total time managing care of this patient today ____ minutes.
--- NOTE | 2024-11-24 15:01 | PM.EVENT ---
Event Note Date of Service: 11/24/24 Event Note: Seen on afternoon rounds Feels well Small bowel follow-through shows contrast has gone all the way to the colon We will DC NG-tube Okay to have sips of liquids Abdomen remained soft and benign Time Spent With Patient Time: Total time managing care of this patient today ____ minutes.
[2024-11-25 03:13] VITALS: BP 101/57; PULSE 76; RESP 16; TEMP 36.6; O2SAT 93
--- NOTE | 2024-11-25 07:46 | PM.PNGS ---
Subjective Subjective Date of Service: 11/25/24 <Lana Krishnan PA-C - Last Filed: 11/25/24 07:48> 11/25/24 <Riki Friedman MD - Last Filed: 11/25/24 08:08> Interval history: Feels overall better, had some mild LLQ pain very early this morning but it has resolved. Tolerating clears. Has had multiple BMs. Feels hungry. <Lana Krishnan PA-C - Last Filed: 11/25/24 07:48> Physical Exam Vital Signs: Vital Signs: Last Vital Signs Temp 97.9 F 11/25/24 03:13 Pulse 76 11/25/24 03:13 Resp 16 11/25/24 03:13 BP 101/57 L 11/25/24 03:13 Pulse Ox 93 11/25/24 03:13 O2 Del Method Room Air 11/25/24 03:13 O2 Flow Rate 2 11/24/24 02:17 BMI result Body Mass Index 27.4 <Lana Krishnan PA-C - Last Filed: 11/25/24 07:48> Const: General: comfortable, no acute distress and alert <Lana Krishnan PA-C - Last Filed: 11/25/24 07:48> Orientation/consciousness: patient oriented x3 <Lana Krishnan PA-C - Last Filed: 11/25/24 07:48> GI: Inspection: No distended <Lana Krishnan PA-C - Last Filed: 11/25/24 07:48> Palpation (GI): Soft to palpation and no guarding <Lana Krishnan PA-C - Last Filed: 11/25/24 07:48> Skin: General skin exam: no rashes or lesions noted <OSMAR Albarran Last Filed: 11/25/24 07:48> Neuro: General: patient oriented x3 <OSMAR Albarran Last Filed: 11/25/24 07:48> Objective Data Active Medications Acetaminophen (Acetaminophen 325 Mg Tablet) 650 mg PO Q6H PRN PRN Reason: Pain, Mild 1-3,fever,headache Heparin Sodium (Porcine) (Heparin Sodium,Porcine 5,000 Unit/Ml Vial) 5,000 unit SUBCUT Q12H [facility] Last Admin: 11/25/24 05:48 Dose: 5,000 unit Documented By: ESTELLE Lactated Ringer's (Lr) 1,000 mls @ 100 mls/hr IVCONT .Q10H [facility] Last Admin: 11/24/24 23:36 Dose: 100 mls/hr Documented By: ESTELLE Morphine Sulfate (Morphine Sulfate 4 Mg/Ml Cartridge) 3 mg IVPUSH Q3H PRN; Protocol PRN Reason: Pain, Severe (Pain Scale 7-10) Last Admin: 11/25/24 01:56 Dose: 3 mg Documented By: ESTELLE Ondansetron HCl (Ondansetron Hcl 4 Mg/2 Ml Vial) 4 mg IVPUSH Q6H PRN PRN Reason: nausea Last Admin: 11/23/24 19:27 Dose: 4 mg Documented By: CHANCE Sodium Chloride (0.9 % Sodium Chloride Flush 3 Ml Syringe) 3 ml IVFLUSH QSHIFT [facility] Last Admin: 11/25/24 01:18 Dose: Not Given Documented By: ESTELEL Non-Admin Reason: IV Running <Lana Krishnan PA-C - Last Filed: 11/25/24 07:48> Labs CBC & Chem 7: 11/24/24 04:09 11/24/24 04:09 <Lana Krishnan PA-C - Last Filed: 11/25/24 07:48> Procedures Date of Service Date of Service: 11/25/24 <Lana Krishnan PA-C - Last Filed: 11/25/24 07:48> 11/25/24 <Riki Friedman MD - Last Filed: 11/25/24 08:08> Progress Note: A&P Assessment and plan (1) Small bowel obstruction: Status: Acute <aLna Krishnan PA-C - Last Filed: 11/25/24 07:48> Assessment and Plan: No events overnight Abdomen is soft and benign Tolerating clears Advance diet as tolerated Small bowel series did not show obstruction Possible DC home later today Seen and examined independently <Riki Friedman MD - Last Filed: 11/25/24 08:08> Assessment and Plan: SBO appears resolved. Tolerating clears, abd remains very benign soft, NTND. Will advance to low residue diet. POssible dc to home later today if tolerating. Patient comfortable with plan. <Lana Krishnan PA-C - Last Filed: 11/25/24 07:48> Time Spent With Patient Time: Total time managing care of this patient today ____ minutes. <Lana Krishnan PA-C - Last Filed: 11/25/24 07:48> Quality Stroke Does the patient have a stroke diagnosis?: No <Lana Krishnan PA-C - Last Filed: 11/25/24 07:48> VTE Prior VTE?: No <Lana Krishnan PA-C - Last Filed: 11/25/24 07:48> VTE Risk Level:: Medical - moderate - high <OSMAR Albarran Last Filed: 11/25/24 07:48> VTE Device Contraindication: N/A - Device Ordered <OSMAR Albarran Last Filed: 11/25/24 07:48> VTE Drug Contraindication: N/A - Med Ordered <OSMAR Albarran Last Filed: 11/25/24 07:48>
[2024-11-25 07:54] VITALS: BP 97/55; PULSE 77; RESP 16; TEMP 36.8; O2SAT 91
[2024-11-25] MEDS: Lactated Ringers 1,000 ML 100 ML IVCONT (09:17)
--- NOTE | 2024-11-25 10:25 | MHC.CM.PN ---
Addendum entered by Maite Foss RN 11/25/24 12:49: Patient medically cleared for dc home self care. Original Note: Patient not medically cleared for dc at this time. Advancing diet. CM will continue to follow.
--- NOTE | 2024-11-25 13:01 | PM.EVENT ---
Event Note Date of Service: 11/25/24 Event Note: Seen on early afternoon rounds Tolerating oral intake well Denies any nausea or vomiting Seen ambulating down the hallway Abdomen is soft and benign She says she is ready to be discharged She can follow up with her primary care physician She understands the risks of recurrent symptoms Time Spent With Patient Time: Total time managing care of this patient today ____ minutes.
--- NOTE | 2024-11-25 13:22 | P.DS_ITS ---
DS: Providers Provider Date of Service: 11/25/24 Date of admission: 11/23/24 17:01 Date of discharge: 11/25/24 Primary care physician: Annel Physician Admitting clinician: Riki Friedman Attending physician on admission: Riki Friedman Attending physician on discharge: Riki Friedman DS: Diagnosis Discharge Diagnosis (1) Partial small bowel obstruction: Status: Acute DS: Summary Hospital Course Hospital Course: Admission HPI: 69 year old female with a history of appendectomy, laparoscopic cholecystectomy as well as a Darnell fundoplication, here because of vomiting and abdominal pain. She says that she has been having this for several days now. She says that she had been throwing up at home for many days and has a poor oral intake. She describes having severe abdominal pain mostly in the upper abdomen today so she came to the ER Currently she says her symptoms have improved. She says she last vomited around 3 hours ago She says she has passed a little bit of flatus and BMs this morning. She says she says she no longer sees a primary care physician as she is in the process of switching. She denies diabetes, coronary artery disease, smoking history or alcohol abuse. Hospital course: Patient was admitted for small-bowel obstruction, NG tube was placed. Patient was made NPO. Initially felt better after NG tube however on admission day 2, patient had some return of pain overall not as significant as on presentation. Continues to have some nausea no further vomiting. Now passing small amounts of flatus. Small-bowel follow-through ordered. Small-bowel follow-through showing contrast in the colon at 75 minutes, also has multiple bowel movements. Minimal abdominal pain, nausea, vomiting. NG tube residual was scant, removed uneventfully diet was advanced to clear liquids. Admission day 3, patient feeling overall better some mild lower left quadrant pain that has resolved. Has had multiple bowel movements, tolerating clear liquid diet. SBO appears resolved this point abdomen remains soft and benign. Diet advanced to low residue diet. Patient felt ready for discharge. At the time of discharge she was in stable condition, abdomen is soft and benign, SBO resolved at this point. She is to follow up with her primary care physician after discharge Status at Discharge Functional status at discharge: independent ambulation Overall status at discharge: patient is progressing back to baseline Time Attestation Discharge Coordination Time (in mins): 30 Quality: Safe Use of Opioids Does Pt have an Active Cancer Diagnosis on the Problem List?: No Quality: Stroke Does the patient have a stroke diagnosis?: No Physical Exam Vital Signs: Vital Signs: Last Vital Signs Temp 98.3 F 11/25/24 07:54 Pulse 77 11/25/24 07:54 Resp 16 11/25/24 07:54 BP 97/55 L 11/25/24 07:54 Pulse Ox 91 L 11/25/24 07:54 O2 Del Method Room Air 11/25/24 07:54 O2 Flow Rate 2 11/24/24 02:17 BMI result Body Mass Index 27.4 Const: General: comfortable, no acute distress and alert Orientation/consciousness: patient oriented x3 GI: Inspection: No distended Palpation (GI): Soft to palpation and no guarding Skin: General skin exam: no rashes or lesions noted Neuro: General: patient oriented x3 Discharge Plan Discharge Anticipated Discharge Date/Time: 11/25/24 12:48 Patient Disposition: Home, Self-Care Discharge Diagnosis: SBO Referrals: Physician,None [Primary Care Provider, Medical] - 1 Week Discharge Medications: Continued omeprazole 20 mg capsule,delayed release(DR/EC) 20 mg PO BID@0630,1630 Discharge Orders: Discharge Order (Routine); Ordered 11/25/24 Ordered By: Lana Krishnan Diet: Advance to usual diet Activity on Discharge: As tolerated Stand Alone Forms: Patient Portal Discharge page Print Language: Japanese Activity Restrictions/Additional Instructions: Follow up with your PCP. Call Your Doctor If: ? ? -Your temperature exceeds 101.5? F? ? ? -You experience excessive pain or swelling ? ? -You have an unexpected reaction to medication ? ? -You experience continued vomiting/nausea Care Plan Goals: Return to baseline health and resume normal activities as tolerated. Health Concerns: SBO Plan of Treatment: NGT, IVF SBFT Diet as tolerated Follow up with PCP Assessment: Improved
[2024-11-25 14:19] VITALS: BP 109/69; PULSE 82; RESP 16; TEMP 36.2; O2SAT 96
== END 2024-11-25 14:27 | disposition home or self-care (01) | DRG 390 ==
LOC: HO.ED 16:14 → HO.EDOVER 17:08 → HO.S3 11-24 07:34
PROVIDERS: Physician Assistant; Admitting Provider Surgery; Emergency Provider Student in an Organized Health Care Education/Training Program; Visit Provider Surgery
DX: K56.51 Intestinal adhesions [bands], with partial obstruction (principal); Z90.49 Acquired absence of other specified parts of digestive tract; Z79.899 Other long term (current) drug therapy
CPT/HCPCS: 36415; 71045; 71275; 74174; 74250; 80048; 80053; 81001; 83690; 83735; 84484; 85025; 93005; 99285; J1171; J1308; J1644; J2270; J2405; J2550; J3010; J7120; Q9967

== ENCOUNTER → 2024-11-23 13:04 | Outpatient (BNV) | payer MEDICARE, MEDICAID, SELFPAY | PROVIDERS: Emergency Provider Student in an Organized Health Care Education/Training Program; Visit Provider Internal Medicine Cardiovascular Disease | DX: R00.0 Tachycardia, unspecified (principal) | CPT/HCPCS: 93010 ==

== ENCOUNTER → 2024-11-23 13:23 | Outpatient (BNV) | payer MEDICARE, MEDICAID, SELFPAY | PROVIDERS: Emergency Provider Student in an Organized Health Care Education/Training Program; Visit Provider Radiology Diagnostic Radiology | DX: K83.8 Other specified diseases of biliary tract (principal); K57.30 Diverticulosis of large intestine without perforation or abscess without bleeding; R07.9 Chest pain, unspecified; R11.0 Nausea | CPT/HCPCS: 71045; 71275; 74174 ==

== ENCOUNTER 2024-11-23 17:01 | Outpatient (BNV) | payer MEDICARE, MEDICAID, SELFPAY | END 2024-11-24 04:40 | PROVIDERS: Admitting Provider Surgery; Emergency Provider Student in an Organized Health Care Education/Training Program; Visit Provider Radiology Vascular & Interventional Radiology | DX: Z46.59 Encounter for fitting and adjustment of other gastrointestinal appliance and device (principal) | CPT/HCPCS: 71045 ==

== ENCOUNTER → 2024-11-23 17:01 | Outpatient (BNV) | payer MEDICARE, MEDICAID, SELFPAY | PROVIDERS: Admitting Provider Surgery; Emergency Provider Student in an Organized Health Care Education/Training Program; Visit Provider Physician Assistant Surgical | DX: K56.609 Unspecified intestinal obstruction, unspecified as to partial versus complete obstruction (principal); K56.600 Partial intestinal obstruction, unspecified as to cause | CPT/HCPCS: 99222; 99238; 99499 ==

== ENCOUNTER 2024-12-07 14:39 | Outpatient (AMB) | payer MEDICARE, MEDICAID, SELFPAY ==
--- NOTE | 2024-12-07 14:45 | MHC.PC.OV ---
Vital Signs 12/07/24 14:48 Height 5 ft 4.37 in Weight 161 lb 2 oz BMI 27.3 BP 110/80 Blood Pressure Location Lt brachial Position Sitting Pulse 69 Pulse Source Pulse Oximeter Temp 97.3 F Temp Source Temporal Artery Scan Pulse Oximetry (%) 96 Oxygen Delivery Method Room Air Intake Visit Reasons: establish care Intake Note: Patient is a new patient here to establish care for Berrtit esophagus. Transferring care from [facility]. Medical records have been requested and have not received. Gymnastics Instructor Required: No Grease Cup Filler: Not Required per policy Accompanied by: Self / Same As Patient Allergies acetaminophen (From PERCOCET) Allergy (Intermediate, Verified 12/07/24 15:01) Hives oxycodone (From PERCOCET) Allergy (Intermediate, Verified 12/07/24 15:01) Hives Medication List - Last Reconciled 12/07/24 by Vernon Livingston MD acyclovir 5% (Zovirax) 1 appl topical 6XD acyclovir 400 mg PO TID omeprazole 20 mg PO BID@0630,1630 Tobacco use date assessed: 12/07/24 Fall risk assessment: No Falls in past year Last assessed Fall Risk: 12/07/24 Dental Screening Dental Screen Date: 12/07/24 Did you have a dental visit in the last 12 months?: No Did you have a dental problem in the last 6 months where you did not have access to dental care?: No Was dental information given to patient?: No HPI HPI Comments History of Present Illness Details The patient is a 69-year-old female presenting to [facility]. The patient reports recurrent herpes simplex virus outbreaks, which have decreased in frequency in the past year. She has experienced three major outbreaks in the past eight months, a reduction from previous episodes. The patient has used acyclovir in the past but finds it financially challenging to maintain both the ointment and pills. The patient was hospitalized for SBO which caused severe pain and has since resolved, leaving her with residual gas symptoms. She was advised to avoid fiber, and she reports a decreased appetite but is managing her diet to avoid exacerbating symptoms. The patient has a history of elevated liver enzymes noted during a recent hospitalization. She has a past history of hepatitis A, from which she was reportedly healed, and her liver enzymes will be re-evaluated in future labs. The patient has a history of Thakur's esophagus and underwent surgical intervention for a hernia and esophageal repair three years ago. She has had multiple colonoscopies and is due for an endoscopy as part of her ongoing gastrointestinal management. [facility] Medical History (Updated 12/07/24 @ 15:45 by Vernon Livingston MD) Partial small bowel obstruction Surgical History (Updated 12/07/24 @ 15:06 by MARGIE Caruso) History of cholecystectomy History of 2 sections History of knee replacement History of colonoscopy History of endoscopy History of hernia repair History of gastric surgery Social History (Updated 12/07/24 @ 14:46 by MARGIE Caruso) Household Members: Friend(s) Housing: Apartment Do you presently have visiting nurse or other home services: No Alcohol intake: never Patient Tobacco Use Status: Never used Tobacco e-Cigarette/Vaping Use: Never Used Second Hand Smoke Exposure: No service: No Current occupational status: retired Cognitive needs: No Hearing needs: No Vision needs: No Questionnaire PHQ-9 Over the last 2 weeks, how often have you been bothered by any of the following problems? 1. Little interest or pleasure in doing things: not at all 2. Feeling down, depressed, or hopeless: not at all 3. Trouble falling or staying asleep, or sleeping too much: not at all 4. Feeling tired or having little energy: not at all 5. Poor appetite or overeating: not at all 6. Feeling bad about yourself - or that you are a failure or have let yourself or your family down: not at all 7. Trouble concentrating on things, such as reading the newspaper or watching television: not at all 8. Moving or speaking so slowly that other people could have noticed. Or the opposite - being so fidgety or restless that you have been moving around a lot more than usual: not at all 9. Thoughts that you would be better off or of hurting yourself in some way: not at all Total score: 0 Depression Screening Interpretation: Negative Depression Screening Done: Yes Source: Developed by Drs. Amado Hager, Rebecca Hardy, Greg Weiss and colleagues, with an educational rainer from [employer]. Thrive Questionnaire Date Thrive assessed: 11/24/24 I am a: Patient What is your living situation today?: I have a steady place to live Within the past 12 months, did the food you bought not last and you didn't have the money to get more?: Never true Within the past 12 months, did you worry whether your food would run out before you got money to buy more?: I choose not to answer this question Do you have trouble paying for medicines?: I choose not to answer this question Do you have trouble getting transportation to medical appointments?: No Do you have trouble paying your heating and electricity bill?: No Do you have trouble taking care of your child, family member or friend?: No Do you have trouble with day-to-day activities such as bathing, preparing meals, shopping, managing finances, etc.?: No Are you currently unemployed and looking for a job?: No Are you interested in more education?: No Please select the resources that you would like help with: None Currently or been in a relationship where the following occur: No concerns reported THRIVE Score: 0 AUDIT C Alcohol Use Questionnaire (AUDIT-C) 1. How often do you have a drink containing alcohol?: Never Total Score: 0 NESS-7 AMB Questionnaire NESS-7 Date NESS - 7 assessed: 12/07/24 Feeling nervous, anxious, or on edge: 0 = Not at all Not being able to stop or control worryin = Not at all Worrying too much about different things: 0 = Not at all Trouble relaxin = Not at all Being so restless that it is hard to sit still: 0 = Not at all Becoming easily annoyed or irritable: 0 = Not at all Feeling afraid as if something awful might happen: 0 = Not at all Total NESS-7 score (0-4 normal; 5-9 mild; 10-14 moderate; 15-21 severe): 0 Source: Developed by Drs. Amado Hager, Rebecca Hardy, Greg Weiss and colleagues, with an educational rainer from [employer]. Review of Systems Const Details: Positives besides what was mentioned in HPI are in BOLD Constitutional: No Weight Change, No Fever, No Chills, No Night Sweats, No Fatigue, No Malaise ENT/Mouth: No Hearing Changes, No Ear Pain, No Nasal Congestion, No Sinus Pain, No Hoarseness, No sore throat, No Rhinorrhea, No Swallowing Difficulty Eyes: No Eye Pain, No Swelling, No Redness, No Foreign Body, No Discharge, No Vision Changes Cardiovascular: No Chest Pain, No SOB, No PND, No Dyspnea on Exertion, No Orthopnea, No Claudication, No Edema, No Palpitations Respiratory: No Cough, No Sputum, No Wheezing, No Smoke Exposure, No Dyspnea Gastrointestinal: No Nausea, No Vomiting, No Diarrhea, No Constipation, No Pain, No Heartburn, No Anorexia, No Dysphagia, No Hematochezia, No Melena, No Flatulence, No Jaundice Genitourinary: No Dysmenorrhea, No DUB, No Dyspareunia, No Dysuria, No Urinary Frequency, No Hematuria, No Urinary Incontinence, No Urgency, No Flank Pain, No Urinary Flow Changes, No Hesitancy Musculoskeletal: No Arthralgias, No Myalgias, No Joint Swelling, No Joint Stiffness, No Back Pain, No Neck Pain, No Injury History Skin: No Skin Lesions, No Pruritis, No Hair Changes, No Breast/Skin Changes, No Nipple Discharge Neuro: No Weakness, No Numbness, No Paresthesias, No Loss of Consciousness, No Syncope, No Dizziness, No Headache, No Coordination Changes, No Recent Falls Psych: No Anxiety/Panic, No Depression, No Insomnia, No Personality Changes, No Delusions, No Rumination, No SI/HI/AH/VH, No Social Issues, No Memory Changes, No Violence/Abuse Hx., No Eating Concerns Heme/Lymph: No Bruising, No Bleeding, No Transfusions History, No Lymphadenopathy Endocrine: No Polyuria, No Polydipsia, No Temperature Intolerance Physical exam (Primary Care) Vital Signs: Last Vital Signs Temp 97.3 F 12/07/24 14:48 Pulse 69 12/07/24 14:48 BP 110/80 12/07/24 14:48 Pulse Ox 96 12/07/24 14:48 Oxygen Delivery Method Room Air 12/07/24 14:48 BMI result Body Mass Index 27.3 Tobacco/Smoking Status: Tobacco use Status Tobacco use date assessed 12/07/24 12/07/24 15:08 Patient Tobacco Use Status Never used Tobacco 12/07/24 15:08 e-Cigarette/Vaping Use Never Used 12/07/24 15:08 PHQ-9: PHQ-9 Score PHQ-9: Total score 0 12/07/24 15:08 Depression Screening Interpretation: Negative Thrive Assessment: Date of Thrive Assessment Date Thrive assessed 11/24/24 12/07/24 15:08 Currently or been in a relationship where the following occur: No concerns reported Const Other: Pertinent findings are in BOLD GENERAL APPEARANCE NAD, activity normal for age, well developed/ well nourished, no cyanosis, pallor, or diaphoresis. EYES lids/conjunctiva normal. EARS/NOSE/THROAT Mucous membranes moist, nares normal, lips/teeth normal uvula midline without oral pharyngeal erythema, exudate or swelling TMs normal bilaterally. No lymphangitis/lymphedema. HEAD/NECK normocephalic atraumatic, no facial trauma, neck is supple. RESPIRATORY respiratory effort normal, speaks in full sentences, no tripod position, no accessory muscle use. Lungs clear to auscultation without rhonchi, wheezes, rales CARDIAC Regular rate and rhythm, no edema. ABDOMINAL Soft, ND/NT. No evidence of fluid wave. No pulsatile masses on exam, rebound tenderness, Rose sign or pain over Mcburney's point. MUSCLES/EXTREMITIES No abnormal range of motion, no swelling. SKIN Warm, pink and dry. No rashes, dermatoses, petechiae or lesions. NEUROLOGICAL Speech is clear and appropriate. Normal level of consciousness. Gait and coordination are normal. 5/5 strength in all extremities. PSYCH Normal mood and affect. Judgement/competence is appropriate Coding Level of Care Code New Pt Level 4 (95981) New Pt Prev Care >65yr (84616) Diagnoses Healthcare maintenance Z00.00 Herpes B00.9 Postmenopausal Z78.0 Thakur's esophagus without dysplasia K22.70 Thakur's esophagus type: without dysplasia Elevated liver enzymes R74.8 Time Spent (min) 40 Assessment & Plan Assessment & Plan (1) Healthcare maintenance: Code(s): Z00.00 - Encounter for general adult medical examination without abnormal findings Category: Medical Plan: CBC, CMP, Lipid panel, A1C, TSH w T4, vit D. Ordered today. Shingles 2 doses when >50 yo. Completed in the past. COVID: two doses. Completed. Tdap: Completed 2024. Due in 2034. Pneumococcal: 19-64. Done. Flu vaccine: Done in 2024. Colonoscopy: 45-75. Aged out. AAA: 65 -75. NI[address] CT lun - 80. NI. HPV: Aged out. HIV: Ordered today. HBV: Ordered today. HCV: Ordered today. Dexa: Mammogram: (2) Herpes: Code(s): B00.9 - Herpesviral infection, unspecified Category: Medical Plan: Valacyclovir 500 mg Daily to prevent outbreaks. (3) Postmenopausal: Code(s): Z78.0 - Asymptomatic menopausal state Category: Medical Plan: DEXA scan. (4) Thakur esophagus: Comment: Unclear if she has dysplasia since she gets her care at [facility]. Code(s): K22.70 - Thakur's esophagus without dysplasia Category: Medical Qualifiers: Thakur's esophagus type: without dysplasia Qualified Code(s): K22.70 - Thakur's esophagus without dysplasia Plan: Follows with [facility] GI. Due for endoscopy soon. Managed at [facility]. (5) Elevated liver enzymes: Code(s): R74.8 - Abnormal levels of other serum enzymes Category: Medical Plan: It could be due to recent hospitalization from SBO. We will repeat labs prior to next visit. Further W-U if continues to trend up. HIV, HBV, HCV ordered. Plan During the visit, we discussed the management of herpes simplex virus outbreaks with valacyclovir, considering daily suppressive therapy due to frequent episodes. We reviewed the patient's recent hospitalization for intestinal blockage and the importance of dietary management to prevent recurrence. The patient was informed about the need to repeat liver function tests and the potential causes of elevated liver enzymes. Orders: Orders HIV Ab/Ag 4 Weeks Z00.00 - Encounter for general adult medical examination without abnormal findings Hepatitis C Antibody Reflex 4 Weeks Z00.00 - Encounter for general adult medical examination without abnormal findings Hepatitis B Surface Antigen 4 Weeks Z00.00 - Encounter for general adult medical examination without abnormal findings Hepatitis B Surface Antibody 4 Weeks Z00.00 - Encounter for general adult medical examination without abnormal findings TSH reflex Free T4 4 Weeks Z00.00 - Encounter for general adult medical examination without abnormal findings Comprehensive Met. Panel 4 Weeks Z00.00 - Encounter for general adult medical examination without abnormal findings XR DEXA axial skeleton Today Z78.0 - Asymptomatic menopausal state Hepatitis B Core Antibody 4 Weeks Z00.00 - Encounter for general adult medical examination without abnormal findings Vitamin D 25-OH (D2 and D3) 4 Weeks Z00.00 - Encounter for general adult medical examination without abnormal findings Lipid Panel 4 Weeks Z00.00 - Encounter for general adult medical examination without abnormal findings Hemoglobin A1c 4 Weeks Z00.00 - Encounter for general adult medical examination without abnormal findings MM screening mammo BI Today Z12.31 - Encounter for screening mammogram for malignant neoplasm of breast Medications: New valacyclovir 500 mg PO DAILY 120 tabs 1RF simethicone (Gas Relief (simethicone)) 250 mg PO DAILY PRN 30 caps 0RF abdominal distention
[2024-12-07 14:48] VITALS: BP 110/80; PULSE 69; TEMP 36.3; O2SAT 96; BMI 27.3
== END 2024-12-07 15:38 | disposition home or self-care (01) ==
LOC: HO.HMCH 14:40
PROVIDERS: Visit Provider Internal Medicine
DX: B00.9 Herpesviral infection, unspecified (principal); Z78.0 Asymptomatic menopausal state; K22.70 Barrett's esophagus without dysplasia; R74.8 Abnormal levels of other serum enzymes

== ENCOUNTER → 2024-12-07 14:39 | Outpatient (BNVA) | payer MEDICARE, MEDICAID, SELFPAY | PROVIDERS: Visit Provider Internal Medicine | DX: Z00.00 Encounter for general adult medical examination without abnormal findings (principal); B00.9 Herpesviral infection, unspecified; K22.70 Barrett's esophagus without dysplasia; R74.8 Abnormal levels of other serum enzymes; Z78.0 Asymptomatic menopausal state | CPT/HCPCS: 96127; 99202 ==

== ENCOUNTER 2025-01-08 16:12 | Outpatient (REF) | payer MEDICARE, MEDICAID, SELFPAY ==
--- OUTSIDE RECORDS SUMMARY | 2025-01-08 16:16 | XMS_ITS | Clinical Summary ---
Author Organization [facility] ity Address [address] [place] [address] Care Team Providers Care Lime Boiler Name Role Phone Unavailable Primary Care Provider [...] Depression Screening 02/19/2024 COVID-19 Vaccine (1 - 2024-2 6 season) 2024 Influenza Vaccine (#1) 2024 RSV [...]
[2025-01-08 17:56] LABS: Alanine Aminotransferase 19 U/L (0-31); Albumin Level 4.5 g/dL (3.5-5.0); Alkaline Phosphatase 78 U/L (39-117); Anion Gap 13 (12-20); Aspartate Amino Transferase 23 U/L (5-31); Blood Urea Nitrogen 14 mg/dL (9-16); Calcium 9.9 mg/dL (8.4-10.2); Carbon Dioxide 27 mmol/L (22-29); Chloride 108 mmol/L (96-108); Cholesterol 263 mg/dL (<200); Estimated Glomerular Filt Rate > 60; HDL Cholesterol 57 mg/dL (>40); Potassium 5.2 mmol/L (3.3-5.1); Sodium 143 mmol/L (135-145); Total Protein 7.8 g/dL (6.5-8.0); Triglycerides 123 mg/dL (<150)
[2025-01-09 08:28] LABS: HBS Num1 > 1000.00 mIU/mL (0-7.99); HBc Num1 6.82 S/CO (0.00-0.79); HBsAGNum1 0.40 S/CO (0.00-0.99); HIV Num 1 0.06 S/CO (0.00-0.99); Hepatitis B Surface Antigen Negative (Negative); ~HepC Num1 2.79 S/CO (0.00-0.79); ~Hepatitis B Surface Antibody REACTIVE (Nonreactive); ~Hepatitis C Antibody Reactive (Nonreactive)
[2025-01-09 09:30] LABS: HBc Num2 6.65 S/CO; HBc Num3 6.67 S/CO
[2025-01-12 13:03] LABS: HCV Log PCR <1.18 NOT DETECTED Log IU/mL (NOT DETECTED); HepC Viral Load <15 NOT DETECTED IU/mL (NOT DETECTED)
[2025-01-15 06:19] LABS: Vitamin D 25-OH, D2 <4 ng/mL; Vitamin D 25-OH, D3 43 ng/mL; Vitamin D 25-OH, Total 43 ng/mL (30-100)
== END 2025-01-08 16:13 | disposition home or self-care (01) ==
LOC: HO.LAB 16:12
PROVIDERS: PCP Internal Medicine; Visit Provider Internal Medicine
DX: Z00.00 Encounter for general adult medical examination without abnormal findings (principal); Z11.4 Encounter for screening for human immunodeficiency virus [HIV]; Z13.1 Encounter for screening for diabetes mellitus; Z13.6 Encounter for screening for cardiovascular disorders
CPT/HCPCS: 36415; 80053; 80061; 82306; 83036; 84443; 86704; 86706; 86803; 87340; 87389; 87522

== ENCOUNTER 2025-01-20 12:51 | Outpatient (AMB) | payer MEDICARE, MEDICAID, SELFPAY ==
[2025-01-20 14:34] VITALS: BP 116/80; PULSE 69; O2SAT 98; BMI 27.4
--- NOTE | 2025-01-20 14:34 | A.OFFPC_ITS ---
Vital Signs 01/20/25 14:34 Height 5 ft 4.37 in Weight 161 lb 8 oz BMI 27.4 BP 116/80 Blood Pressure Location Lt brachial Position Sitting Pulse 69 Pulse Source Pulse Oximeter Pulse Oximetry (%) 98 Oxygen Delivery Method Room Air Intake Visit Reasons: 6 week f/u Craft Coordinator Required: No Accompanied by: Self / Same As Patient Allergies acetaminophen (From PERCOCET) Allergy (Intermediate, Verified 01/20/25 14:34) Hives oxycodone (From PERCOCET) Allergy (Intermediate, Verified 01/20/25 14:34) Hives Medication List - Last Reconciled 01/20/25 by Vernon Livingston MD acyclovir 5% (Zovirax) 1 appl topical 6XD atorvastatin (Lipitor) 40 mg PO DAILY omeprazole 20 mg PO BID@0630,1630 simethicone (Gas Relief (simethicone)) 250 mg PO DAILY PRN sodium zirconium cyclosilicate (Lokelma) 5 grams PO DAILY valacyclovir 500 mg PO DAILY Tobacco use date assessed: 01/20/25 Fall risk assessment: No Falls in past year Last assessed Fall Risk: 01/20/25 Dental Screening Dental Screen Date: 01/20/25 Did you have a dental visit in the last 12 months?: Yes Did you have a dental problem in the last 6 months where you did not have access to dental care?: No Was dental information given to patient?: Patient has dentist HPI HPI Comments History of Present Illness Details The patient is a 69 year old F with PMH of herpes, presenting for a follow-up visit for management of chronic conditions and an inquiry about weight loss options. The patient reports being on daily acyclovir (valacyclovir) for suppressive therapy for herpes and has experienced only one outbreak recently, an improvement from the usual three or four. During the outbreak, the patient took the medication three times a day, which helped resolve the symptoms. The patient has a history of hypercholesterolemia and started atorvastatin in February. The patient is under the care of a barrel rifler button for Thakur's esophagus and had an upper endoscopy in May. There is a past history of hepatitis C, which resolved without treatment. Health maintenance screenings, including a DEXA scan and mammogram, are scheduled in February. [facility] Medical History (Updated 01/20/25 @ 17:25 by Vernon Livingston MD) Partial small bowel obstruction Surgical History History of cholecystectomy History of 2 sections History of knee replacement History of colonoscopy History of endoscopy History of hernia repair History of gastric surgery Social History Household Members: Friend(s) Housing: Apartment Do you presently have visiting nurse or other home services: No Alcohol intake: never Patient Tobacco Use Status: Never used Tobacco e-Cigarette/Vaping Use: Never Used Second Hand Smoke Exposure: No service: No Current occupational status: retired Cognitive needs: No Hearing needs: No Vision needs: No Questionnaire PHQ-9 Over the last 2 weeks, how often have you been bothered by any of the following problems? 1. Little interest or pleasure in doing things: not at all 2. Feeling down, depressed, or hopeless: not at all 3. Trouble falling or staying asleep, or sleeping too much: not at all 4. Feeling tired or having little energy: not at all 5. Poor appetite or overeating: not at all 6. Feeling bad about yourself - or that you are a failure or have let yourself or your family down: not at all 7. Trouble concentrating on things, such as reading the newspaper or watching television: not at all 8. Moving or speaking so slowly that other people could have noticed. Or the opposite - being so fidgety or restless that you have been moving around a lot more than usual: not at all 9. Thoughts that you would be better off or of hurting yourself in some w ay: not at all Total score: 0 Depression Screening Interpretation: Negative Depression Screening Done: Yes Source: Developed by Drs. Amado Hager, Rebecca Hardy, Greg Weiss and colleagues, with an educational rainer from [employer]. Thrive Questionnaire Date Thrive assessed: 01/20/25 I am a: Patient What is your living situation today?: I have a steady place to live Within the past 12 months, did the food you bought not last and you didn't have the money to get more?: Never true Within the past 12 months, did you worry whether your food would run out before you got money to buy more?: I choose not to answer this question Do you have trouble paying for medicines?: I choose not to answer this question Do you have trouble getting transportation to medical appointments?: No Do you have trouble paying your heating and electricity bill?: No Do you have trouble taking care of your child, family member or friend?: No Do you have trouble with day-to-day activities such as bathing, preparing meals, shopping, managing finances, etc.?: No Are you currently unemployed and looking for a job?: No Are you interested in more education?: No Please select the resources that you would like help with: None Currently or been in a relationship where the following occur: No concerns reported THRIVE Score: 0 AUDIT C Alcohol Use Questionnaire (AUDIT-C) 1. How often do you have a drink containing alcohol?: Never 3. How often do you have six or more drinks on one occasion?: Never Total Score: 0 NESS-7 AMB Questionnaire NESS-7 Date NESS - 7 assessed: 01/20/25 Feeling nervous, anxious, or on edge: 0 = Not at all Not being able to stop or control worryin = Not at all Worrying too much about different things: 0 = Not at all Trouble relaxin = Not at all Being so restless that it is hard to sit still: 0 = Not at all Becoming easily annoyed or irritable: 0 = Not at all Feeling afraid as if something awful might happen: 0 = Not at all Total NESS-7 score (0-4 normal; 5-9 mild; 10-14 moderate; 15-21 severe): 0 Source: Developed by Drs. Amado Hager, Rebecca Hardy, Greg Weiss and colleagues, with an educational rainer from [employer]. Review of Systems Const Details: As per HPI. Physical exam (Primary Care) Vital Signs: Last Vital Signs Pulse 69 01/20/25 14:34 BP 116/80 01/20/25 14:34 Pulse Ox 98 01/20/25 14:34 Oxygen Delivery Method Room Air 01/20/25 14:34 BMI result Body Mass Index 27.4 Tobacco/Smoking Status: Tobacco use Status Tobacco use date assessed 01/20/25 01/20/25 14:36 Patient Tobacco Use Status Never used Tobacco 01/20/25 14:36 e-Cigarette/Vaping Use Never Used 01/20/25 14:36 PHQ-9: PHQ-9 Score PHQ-9: Total score 0 01/20/25 15:14 Depression Screening Interpretation: Negative Thrive Assessment: Date of Thrive Assessment Date Thrive assessed 01/20/25 01/20/25 14:40 Currently or been in a relationship where the following occur: No concerns reported Const Other: Pertinent findings are in BOLD GENERAL APPEARANCE NAD, activity normal for age, well developed/ well nourished, no cyanosis, pallor, or diaphoresis. EYES lids/conjunctiva normal. EARS/NOSE/THROAT Mucous membranes moist, nares normal, lips/teeth normal uvula midline without oral pharyngeal erythema, exudate or swelling TMs normal bilaterally. No lymphangitis/lymphedema. HEAD/NECK normocephalic atraumatic, no facial trauma, neck is supple. RESPIRATORY respiratory effort normal, speaks in full sentences, no tripod position, no accessory muscle use. Lungs clear to auscultation without rhonchi, wheezes, rales CARDIAC Regular rate and rhythm, no edema. ABDOMINAL Soft, ND/NT. No evidence of fluid wave. No pulsatile masses on exam, rebound tenderness, Rose sign or pain over Mcburney's point. MUSCLES/EXTREMITIES No abnormal range of motion, no swelling. SKIN Warm, pink and dry. No rashes, dermatoses, petechiae or lesions. NEUROLOGICAL Speech is clear and appropriate. Normal level of consciousness. Gait and coordination are normal. 5/5 strength in all extremities. PSYCH Normal mood and affect. Judgement/competence is appropriate Coding Level of Care Code Est Pt Level 4 (86296) Diagnoses Hyperlipidemia, unspecified hyperlipidemia type E78.5 Hyperlipidemia type: unspecified Herpes B00.9 Hyperkalemia E87.5 Time Spent (min) 30 Assessment & Plan Assessment & Plan (1) HLD (hyperlipidemia): Code(s): E78.5 - Hyperlipidemia, unspecified Category: Medical Qualifiers: Hyperlipidemia type: unspecified Qualified Code(s): E78.5 - Hyperlipidemia, unspecified Plan: - The patient will continue taking atorvastatin as prescribed. - Will monitor with labs in 11 months. (2) Herpes: Code(s): B00.9 - Herpesviral infection, unspecified Category: Medical Plan: - Will continue daily valacyclovir for suppressive therapy. - The patient reports significant improvement in outbreak frequency. - The patient was counseled to take the medication three times daily during an active outbreak. (3) Hyperkalemia: Code(s): E87.5 - Hyperkalemia Category: Medical Plan: Patient was recently started on Lokelma for K 5.2. We will re-evaluate the K level on 01/27. Plan I discussed the patient's concern regarding weight and request for medications like Ozempic. I explained that because the patient's BMI is 27 and there is no history of diabetes, the patient is considered healthy and does not qualify for these medications. I encouraged the patient to continue with diet and exercise, including going to the gym. We reviewed the effectiveness of the daily valacyclovir regimen for herpes suppression, which has successfully reduced the frequency of outbreaks. I confirmed the patient is taking atorvastatin for high cholesterol and that we will monitor its effect with upcoming labs. I also acknowledged the patient is scheduled for Dexa and Mammogram in 02/2025. - F-U in 11 months with labs for yearly physical. Orders: Orders Lipid Panel 11 Months Z00.00 - Encounter for general adult medical examination without abnormal findings Hemoglobin A1c 11 Months Z00.00 - Encounter for general adult medical examination without abnormal findings Complete Blood Count no Diff 11 Months Z00.00 - Encounter for general adult medical examination without abnormal findings Comprehensive Met. Panel 11 Months Z00.00 - Encounter for general adult medical examination without abnormal findings TSH reflex Free T4 11 Months Z00.00 - Encounter for general adult medical examination without abnormal findings Vitamin D 25-OH Total 11 Months Z00.00 - Encounter for general adult medical examination without abnormal findings
--- OUTSIDE RECORDS SUMMARY | 2025-01-20 15:12 | XMS_ITS | Clinical Summary ---
Author Organization [facility] ity Address [address] [place] [address] Care Team Providers Care Svp Digital Sales Food & Cooking Name Role Phone Unavailable Primary Care Provider [...]
== END 2025-01-20 15:23 | disposition home or self-care (01) ==
LOC: HO.HMCH 12:52
PROVIDERS: PCP Internal Medicine; Visit Provider Internal Medicine
DX: E78.5 Hyperlipidemia, unspecified (principal); B00.9 Herpesviral infection, unspecified; E87.5 Hyperkalemia

== ENCOUNTER → 2025-01-20 12:51 | Outpatient (BNVA) | payer MEDICARE, MEDICAID, SELFPAY | PROVIDERS: PCP Internal Medicine; Visit Provider Internal Medicine | DX: E78.5 Hyperlipidemia, unspecified (principal); B00.9 Herpesviral infection, unspecified; E87.5 Hyperkalemia | CPT/HCPCS: 99212 ==

== ENCOUNTER 2025-02-05 14:53 | Outpatient (REF) | payer MEDICARE, MEDICAID, SELFPAY ==
[2025-02-05 15:40] LABS: Hematocrit 43.3 % (37.0-47.0); Hemoglobin 14.1 g/dl (12.0-16.0); Mean Corpuscular HGB Conc 32.6 g/dl (31.0-35.0); Mean Corpuscular Hemoglobin 28.5 pg (27.0-33.0); Mean Corpuscular Volume 87.7 fL (80.0-98.0); NRBC Abs Auto 0.000 X10*3/uL (0.0-0.012); NRBC Pct Auto 0.0 /100WBC (0.0-0.2); Platelet Count 314 X10*3/uL (160-400); Red Blood Count 4.94 X10*6/uL (4.20-5.50); White Blood Count 6.9 X10*3/uL (4.8-10.8)
--- OUTSIDE RECORDS SUMMARY | 2025-02-05 16:13 | XMS_ITS | Clinical Summary ---
Author Organization [facility] ity Address [address] [place] [address] Care Team Providers Care Fats And Oils Loader Name Role Phone Unavailable Primary Care Provider [...]
[2025-02-05 16:38] LABS: Anion Gap 13 (12-20)
[2025-02-05 16:43] LABS: Alanine Aminotransferase 17 U/L (0-31); Albumin Level 4.3 g/dL (3.5-5.0); Alkaline Phosphatase 78 U/L (39-117); Aspartate Amino Transferase 27 U/L (5-31); Blood Urea Nitrogen 14 mg/dL (9-16); Calcium 9.3 mg/dL (8.4-10.2); Carbon Dioxide 22 mmol/L (22-29); Chloride 110 mmol/L (96-108); Cholesterol 176 mg/dL (<200); Estimated Glomerular Filt Rate > 60; HDL Cholesterol 53 mg/dL (>40); Potassium 4.0 mmol/L (3.3-5.1); Sodium 141 mmol/L (135-145); Total Protein 7.0 g/dL (6.5-8.0); Triglycerides 147 mg/dL (<150)
== END 2025-02-05 14:54 | disposition home or self-care (01) ==
LOC: HO.LAB 14:53
PROVIDERS: PCP Internal Medicine; Visit Provider Internal Medicine
DX: Z00.00 Encounter for general adult medical examination without abnormal findings (principal); Z13.6 Encounter for screening for cardiovascular disorders; Z13.1 Encounter for screening for diabetes mellitus; Z13.29 Encounter for screening for other suspected endocrine disorder; Z13.0 Encounter for screening for diseases of the blood and blood-forming organs and certain disorders involving the immune mechanism
CPT/HCPCS: 36415; 80053; 80061; 82306; 83036; 84443; 85027